=== PATIENT | female | born 1955 | race Caucasian/White ===

== ENCOUNTER 2021-05-06 09:31 | Inpatient (IN) ==
--- NOTE | 2021-05-06 09:40 | DR.SOBA ---
HPI Time Seen Time Seen by Provider: 05/06/21 09:35 Complaints Chief Complaint Doctors Comments: 65 y/o female, has a h/o COPD, having dyspnea over the past 3 days. Worsened this am. Denies cough, fever, chills, chest pain or recent illness. Has O2 at home, presented to triage without O2, pulse ox 38%. No cardiac hx, no h/o CHF. H/o smoking, quit 3 months ago. COVID-19 Coronavirus risk:travel/contact w/high risk person: No Has patient experienced Coronavirus symptoms: Yes Coronavirus symptoms experienced: Shortness of Breath Reviewed Nurses Notes Reviewed: Yes Source History Provided: Patient PMH PMH Past Medical History: COPD Past Surgical History: No Family History History of Family Medical Conditions: No Social History Does patient currently use any type of tobacco product: No Have you used tobacco products in the last 12 months: Yes Type of Tobacco Use: Cigarettes Alcohol Use: None Do you use any recreational Drugs:: No Travel Risk Coronavirus risk:travel/contact w/high risk person: No Has patient experienced Coronavirus symptoms: Yes Coronavirus symptoms experienced: Shortness of Breath ROS Review of Systems Constitutional: Malaise and Fatigue Eyes: No Symptoms Reported ENTM: No Symptoms Reported Respiratoy: Short of Breath Cardiovascular: No Symptoms Reported Gastrointestinal/Abdominal: No Symptoms Reported Genitourinary: No Symptoms Reported Neurological: No Symptoms Reported Musculoskeletal: No Symptoms Reported Integumentary: No Symptoms Reported Hematologic/Lymphatic: No Symptoms Reported Endocrine: No Symptoms Reported Psychiatric: No Symptoms Reported All Other Systems: Reviewed and Negative PE Vital Signs Vitals: Pulse Rate [Left Radial] 73 Pulse Rate 68 Respiratory Rate 20 Blood Pressure [Left Arm] 146/70 Blood Pressure 145/82 O2 Sat by Pulse Oximetry 94 General Limitations: No Limitations General Appearance: Alert and In Distress (but better on O2) Head Head Exam: Normal Inspection Eyes Eye exam: Normal Appearance and PERRL ENT ENT Exam: Normal Exam Neck Neck Exam: Normal Inspection Chest Chest Inspection: Normal Inspection Respiratory Respiratory Exam: Other (decreased breath sounds at bases, no wheezing.) Cardiovascular Cardiovascular Exam: Regular Rate, Normal Rhythm and Normal Heart Sounds Abdominal Exam Abdominal Exam: Normal Inspection, Normal Bowel Sounds and Soft; negative Tenderness Extremities Extremities Exam: Normal Inspection Back Back Exam: Normal Inspection and Full ROM Neurologic Neurological Exam: Alert, Oriented X3 and CN II-XII Intact; negative Motor Sensory Deficit Psychiatric Psychiatric Exam: Normal Affect Skin Skin Exam: Warm and Dry MDM Differential Diagnosis Differential Diagnosis: Bronchitis, CHF, COPD, Mycardial Infarction, Pneumonia and Pulmonary embolism COURSE Treatment Treatment: Pt with h/o COPD, having dyspnea over the past several days. Pulse ox etremely low at triage. Placed in NRB, w/u initiated. ABG with elevated pCO2/pO2. Changed to bipap. CXR without infiltrate. Given IV steroid, duoneb breathing treatment. 1246 - repeat ABG shows persistent elevated pCO2, with some improvement, 91 - 89. Chemistries overall acceptable except for elevated HCO3 or 42. Pt appears to have exacerbation of COPD. Recommend admission for further treatment. Discussed with covering hospitalist, Dr. Hines, accepts the admis price. ROR Labs Reviewed Laboratory Results Reviewed?: Yes Result Diagrams: 05/06/21 09:36 05/06/21 09:36 Laboratory: WBC 9.9 X10^3/uL (3.6-10.0) 05/06/21 09:36 RBC 4.24 X10^6/uL (3.5-5.4) 05/06/21 09:36 Hgb 13.6 g/dL (12.0-16.0) 05/06/21 09:36 Hct 40.9 % (36.0-47.0) 05/06/21 09:36 MCV 96.4 fL (80.0-100.0) 05/06/21 09:36 MCH 32.0 pg (27.0-34.0) 05/06/21 09:36 MCHC 33.2 g/dL (33.0-35.0) 05/06/21 09:36 RDW 14.8 % (11.6-16.5) 05/06/21 09:36 Plt Count 254 X10^3/uL (150.0-450.0) 05/06/21 09:36 MPV 8.6 fL (7.4-11.0) 05/06/21 09:36 Neut % (Auto) 75.8 % (42.0-75.0) H 05/06/21 09:36 Lymph % (Auto) 13.4 % (21.0-51.0) L 05/06/21 09:36 Jennings % (Auto) 9.0 % (0.0-13.0) 05/06/21 09:36 Eos % (Auto) 1.1 % (0.9-2.9) 05/06/21 09:36 Baso % (Auto) 0.7 % (0.2-1.0) 05/06/21 09:36 Neut # (Auto) 7.5 x10^3/uL (2.2-4.8) H 05/06/21 09:36 Lymph # (Auto) 1.3 X10^3/uL (1.3-2.9) 05/06/21 09:36 [place] # (Auto) 0.9 x10^3/uL (0.3-0.8) H 05/06/21 09:36 Eos # (Auto) 0.1 x10^3/uL (0.0-0.2) 05/06/21 09:36 Baso # (Auto) 0.1 X10^3/uL (0.0-0.1) 05/06/21 09:36 Absolute Nucleated RBC 0.1 /100WBC 05/06/21 09:36 Sample Site Rr 05/06/21 12:18 ABG pH 7.290 (7.35-7.45) L 05/06/21 12:18 ABG pCO2 89.0 mmHg (35.0-45.0) H* 05/06/21 12:18 ABG pO2 76.0 mmHg (80.0-100.0) L 05/06/21 12:18 ABG HCO3 42.8 mmol/L (22-26) H* 05/06/21 12:18 ABG O2 Saturation 93.0 % (90-100) 05/06/21 12:18 ABG Base Excess 12.6 mmol/L (-2.0-2.0) H 05/06/21 12:18 Balta Test Pos 05/06/21 12:18 A-a Gradient 98.0 mmHg 05/06/21 12:18 FiO2 40.0 05/06/21 12:18 Blood Gas Comments Pt jeanine well. jn, infusion rn 05/06/21 12:18 Sodium 146 mmol/L (136-145) H 05/06/21 09:36 Corrected Sodium 147 mmol/L (136-145) H 05/06/21 09:36 Potassium 4.1 mmol/L (3.5-5.1) 05/06/21 09:36 Chloride 104 mmol/L (98-107) 05/06/21 09:36 Carbon Dioxide 42.2 mmol/L (21-32) H* 05/06/21 09:36 BUN 20 mg/dL (7-18) H 05/06/21 09:36 Creatinine 0.75 mg/dL (0.55-1.02) 05/06/21 09:36 Est GFR (MDRD) Af Amer > 60 (>60) 05/06/21 09:36 Est GFR (MDRD) Non-Af > 60 (>60) 05/06/21 09:36 Glucose 122 mg/dL (65-99) H 05/06/21 09:36 Calcium 8.3 mg/dL (8.5-10.1) L 05/06/21 09:36 Corrected Calcium 8.9 mg/dL (8.5-10.1) 05/06/21 09:36 Total Bilirubin 0.30 mg/dL (0.2-1.0) 05/06/21 09:36 AST 40 Units/L (15-37) H 05/06/21 09:36 ALT 108 Units/L (12-78) H 05/06/21 09:36 Alkaline Phosphatase 151 Units/L (46-116) H 05/06/21 09:36 Creatine Kinase 81 Units/L (26-192) 05/06/21 09:36 CK-MB (CK-2) 2.8 ng/mL (0-4.0) 05/06/21 09:36 CK/CKMB % Calc 3.5 % (<4) 05/06/21 09:36 Troponin I < 0.02 ng/mL (0-1.5) 05/06/21 09:36 B-Natriuretic Peptide 169 pg/mL (0-79) H 05/06/21 09:36 Total Protein 7.1 g/dL (6.4-8.2) 05/06/21 09:36 Albumin 3.3 g/dL (3.4-5.0) L 05/06/21 09:36 Globulin 3.8 g/dL (2.5-4.5) 05/06/21 09:36 Albumin/Globulin Ratio 0.9 Ratio (1.1-2.1) L 05/06/21 09:36 SARS-CoV-2 (PCR) Negative (NEGATIVE) 05/06/21 09:51 Influenza Type A (PCR) Negative (NEGATIVE) 05/06/21 09:51 Influenza Type B (PCR) Negative (NEGATIVE) 05/06/21 09:51 RSV (PCR) Negative (NEGATIVE) 05/06/21 09:51 Other Results Comments: ABG on NRB - pH 7.3, ABG pCO2 91, pO2 398. Changed to bipap EKG Rate: 85 [place]: RAD Rhythm: NSR Block: None Hypertrophy: None ST: Nonsp Opioid Opioid Risk Tool Total: 0 Total Score Risk Category: Low Risk Copyright: Manny SORIA predicting aberrant behaviors Diagnosis Discharge Problem: COPD with acute exacerbation
[2021-05-06 09:42] LABS: ABG BASE EXCESS 14.4 mmol/L (-2.0-2.0)
[2021-05-06 09:44] LABS: ABG ALLEN TEST POS; ABG HCO3 44.8 mmol/L (22-26)
[2021-05-06 10:03] LABS: BASOPHILS # (AUTO) 0.1 X10^3/uL (0.0-0.1); BASOPHILS % (AUTO) 0.7 % (0.2-1.0); EOSINOPHILS # (AUTO) 0.1 x10^3/uL (0.0-0.2); EOSINOPHILS % (AUTO) 1.1 % (0.9-2.9); HEMATOCRIT 40.9 % (36.0-47.0); HEMOGLOBIN 13.6 g/dL (12.0-16.0); LYMPHOCYTES # (AUTO) 1.3 X10^3/uL (1.3-2.9); LYMPHOCYTES % (AUTO) 13.4 % (21.0-51.0); MEAN CORPUSCULAR HGB CONC 33.2 g/dL (33.0-35.0); MEAN CORPUSCULAR VOLUME 96.4 fL (80.0-100.0); MEAN PLATELET VOLUME 8.6 fL (7.4-11.0); MONOCYTES # (AUTO) 0.9 x10^3/uL (0.3-0.8); NEUTROPHILS # (AUTO) 7.5 x10^3/uL (2.2-4.8); NEUTROPHILS % (AUTO) 75.8 % (42.0-75.0); PLATELET COUNT 254 X10^3/uL (150.0-450.0); RED BLOOD COUNT 4.24 X10^6/uL (3.5-5.4); RED CELL DISTRIBUTION WIDTH 14.8 % (11.6-16.5); WHITE BLOOD COUNT 9.9 X10^3/uL (3.6-10.0)
--- NOTE | 2021-05-06 10:03 | RAD ---
HISTORYPT. C/O SHORTNESS OF BREATH, ONSET OF THURSDAY. PT. WEARS HOME O2 @ 2LPM VIA N/C. PT. HAD NO O2 ON UPON ARRIVAL TO THE ER. PT. IN RESPIRATORY DISTRESSSTUDYCHEST, 1 [id number]/08/2021.TECHNIQUEAP view of the chestFINDINGSCardiac and mediastinal contours are within normal limits. The lungs are stably hyperexpanded. No consolidation or segmental lung collapse. No definite pleural effusion or pneumothorax. Soft tissue attenuation limits evaluation.IMPRESSIONHyperexpanded lungs suggest COPD.Electronically signed by: Justino Phillips (May 06, 2021 09:59:41)
[2021-05-06] MEDS ORDERED: DUONEB 0.5 MG/3 MG (3 mL) NEB ONE ×2 (10:05→10:59)
[2021-05-06] MEDS ORDERED: SOLU-Medrol 125 MG VIAL IVP ONE (10:05)
[2021-05-06 10:22] LABS: ALANINE AMINOTRANSFERASE 108 Units/L (12-78); ALBUMIN 3.3 g/dL (3.4-5.0); ALKALINE PHOSPHATASE 151 Units/L (46-116); ASPARTATE AMINO TRANSFERASE 40 Units/L (15-37); BLOOD UREA NITROGEN 20 mg/dL (7-18); CALCIUM 8.3 mg/dL (8.5-10.1); CHLORIDE 104 mmol/L (98-107); CKMB % 3.5 % (<4); COR CA(FOR HYPOALB) 8.9 mg/dL (8.5-10.1); COR NA(FOR HYPERGLY) 147 mmol/L (136-145); CREATINE KINASE 81 Units/L (26-192); CREATINE KINASE MB 2.8 ng/mL (0-4.0); CREATININE 0.75 mg/dL (0.55-1.02); SODIUM 146 mmol/L (136-145); TOTAL PROTEIN 7.1 g/dL (6.4-8.2); TROPONIN I < 0.02 ng/mL (0-1.5); eGFR NON BLACK RACES > 60 (>60)
[2021-05-06 10:26] LABS: CARBON DIOXIDE 42.2 mmol/L (21-32)
[2021-05-06] MEDS ORDERED: SOLU-Medrol 125 MG VIAL ONE (10:27)
[2021-05-06 12:23] LABS: ABG BASE EXCESS 12.6 mmol/L (-2.0-2.0)
[2021-05-06 12:24] LABS: ABG ALLEN TEST POS; ABG HCO3 42.8 mmol/L (22-26)
[2021-05-06] MEDS ORDERED: LEVAQUIN PREMIX IV 750 MG 750 MG/150 ML BAG IV ONE ×2 (13:08→13:46)
[2021-05-06 16:31] VITALS: BMI 36.1
[2021-05-06] MEDS: SOLU-Medrol 40 MG VIAL IVP SCH ×2 (16:35→21:05)
[2021-05-06] MEDS: NS 1,000 ML IV 1,000 ML IV SCH (16:35)
[2021-05-06] MEDS: DUONEB 0.5 MG/3 MG (3 mL) NEB SCH ×2 (17:40→20:40)
[2021-05-06] MEDS: PULMICORT NEB TX 0.5 MG NEB SCH (20:40)
[2021-05-06] MEDS: SNACK - Diabetic Appropriate PO SCH (21:04)
[2021-05-06] MEDS: HumuLIN R SUBCUT PRN (21:05)
[2021-05-07] MEDS: NS 1,000 ML IV 1,000 ML IV SCH ×2 (05:30→15:12)
[2021-05-07] MEDS: SOLU-Medrol 40 MG VIAL IVP SCH ×3 (05:31→21:04)
--- NOTE | 2021-05-07 05:55 | RAD ---
PROCEDURE: Chest X-ray 1 View .HISTORY: DYSPNEA .TECHNIQUE: AP view .COMPARISON: 05/06/2021.TECHNICAL QUALITY: Satisfactory .FINDINGS:Normal size heart .Mediastinum and hilar regions show no masses or lymphadenopathy .Normal central vascularity .No pulmonary consolidation, masses, pleural fluid, or pneumothorax. Hyper expansion of the lungs with hyperlucency consistent with emphysema. Some increased interstitial markings consistent with fibrosis that is unchanged.No acute bony abnormality .IMPRESSION:1. COPD and fibrosis.2. No other acute change identified.Electronically signed by: Peña Luu (May 07, 2021 05:53:18)
[2021-05-07 06:18] LABS: BASOPHILS % (AUTO) 0.3 % (0.2-1.0); HEMATOCRIT 40.1 % (36.0-47.0); HEMOGLOBIN 12.9 g/dL (12.0-16.0); LYMPHOCYTES # (AUTO) 0.5 X10^3/uL (1.3-2.9); LYMPHOCYTES % (AUTO) 3.3 % (21.0-51.0); MEAN CORPUSCULAR HEMOGLOBIN 31.4 pg (27.0-34.0); MEAN CORPUSCULAR HGB CONC 32.2 g/dL (33.0-35.0); MEAN CORPUSCULAR VOLUME 97.7 fL (80.0-100.0); MEAN PLATELET VOLUME 8.7 fL (7.4-11.0); MONOCYTES # (AUTO) 0.6 x10^3/uL (0.3-0.8); MONOCYTES % (AUTO) 4.2 % (0.0-13.0); NEUTROPHILS # (AUTO) 12.8 x10^3/uL (2.2-4.8); NEUTROPHILS % (AUTO) 92.2 % (42.0-75.0); PLATELET COUNT 235 X10^3/uL (150.0-450.0); RED CELL DISTRIBUTION WIDTH 14.7 % (11.6-16.5); WHITE BLOOD COUNT 13.9 X10^3/uL (3.6-10.0)
[2021-05-07 06:47] LABS: ALANINE AMINOTRANSFERASE 101 Units/L (12-78); ALBUMIN 3.1 g/dL (3.4-5.0); ALKALINE PHOSPHATASE 142 Units/L (46-116); ASPARTATE AMINO TRANSFERASE 31 Units/L (15-37); BLOOD UREA NITROGEN 17 mg/dL (7-18); CALCIUM 8.4 mg/dL (8.5-10.1); CARBON DIOXIDE 39.9 mmol/L (21-32); CHLORIDE 104 mmol/L (98-107); COR CA(FOR HYPOALB) 9.1 mg/dL (8.5-10.1); COR NA(FOR HYPERGLY) 146 mmol/L (136-145); CREATININE 0.71 mg/dL (0.55-1.02); SODIUM 144 mmol/L (136-145); TOTAL PROTEIN 6.8 g/dL (6.4-8.2); eGFR NON BLACK RACES > 60 (>60)
[2021-05-07 07:05] LABS: BAND NEUTROPHILS % 3 % (0-10); PLATELET MORPHOLOGY COMMENT NORMAL (NORMAL)
[2021-05-07] MEDS: DUONEB 0.5 MG/3 MG (3 mL) NEB SCH ×4 (08:50→21:00)
[2021-05-07] MEDS: PULMICORT NEB TX 0.5 MG NEB SCH ×2 (08:50→21:00)
[2021-05-07] MEDS: LEVAQUIN PREMIX IV 750 MG 750 MG/150 ML BAG IV SCH (09:19)
[2021-05-07] MEDS: LOVENOX INJ 40 MG SYR SC SCH (18:00)
[2021-05-07] MEDS: SNACK - Diabetic Appropriate PO SCH (20:12)
[2021-05-07] MEDS: HumuLIN R SUBCUT PRN ×2 (20:13→21:05)
[2021-05-08 05:31] LABS: BASOPHILS % (AUTO) 0.2 % (0.2-1.0); HEMATOCRIT 39.4 % (36.0-47.0); HEMOGLOBIN 12.8 g/dL (12.0-16.0); LYMPHOCYTES # (AUTO) 0.4 X10^3/uL (1.3-2.9); LYMPHOCYTES % (AUTO) 2.2 % (21.0-51.0); MEAN CORPUSCULAR HEMOGLOBIN 31.4 pg (27.0-34.0); MEAN CORPUSCULAR HGB CONC 32.5 g/dL (33.0-35.0); MEAN CORPUSCULAR VOLUME 96.6 fL (80.0-100.0); MEAN PLATELET VOLUME 8.5 fL (7.4-11.0); MONOCYTES # (AUTO) 0.5 x10^3/uL (0.3-0.8); MONOCYTES % (AUTO) 2.9 % (0.0-13.0); NEUTROPHILS # (AUTO) 15.4 x10^3/uL (2.2-4.8); NEUTROPHILS % (AUTO) 94.7 % (42.0-75.0); PLATELET COUNT 248 X10^3/uL (150.0-450.0); RED BLOOD COUNT 4.08 X10^6/uL (3.5-5.4); RED CELL DISTRIBUTION WIDTH 14.6 % (11.6-16.5); WHITE BLOOD COUNT 16.3 X10^3/uL (3.6-10.0)
[2021-05-08] MEDS: SOLU-Medrol 40 MG VIAL IVP SCH ×3 (05:43→21:00)
[2021-05-08 05:52] LABS: ALANINE AMINOTRANSFERASE 95 Units/L (12-78); ALKALINE PHOSPHATASE 127 Units/L (46-116); ASPARTATE AMINO TRANSFERASE 24 Units/L (15-37); BLOOD UREA NITROGEN 17 mg/dL (7-18); CALCIUM 8.2 mg/dL (8.5-10.1); CARBON DIOXIDE 37.7 mmol/L (21-32); CHLORIDE 104 mmol/L (98-107); COR NA(FOR HYPERGLY) 144 mmol/L (136-145); CREATININE 0.71 mg/dL (0.55-1.02); SODIUM 143 mmol/L (136-145); TOTAL PROTEIN 6.5 g/dL (6.4-8.2); eGFR NON BLACK RACES > 60 (>60)
[2021-05-08 05:55] LABS: ABG BASE EXCESS 13.4 mmol/L (-2.0-2.0)
[2021-05-08 05:58] LABS: ABG HCO3 43.3 mmol/L (22-26)
[2021-05-08 05:59] LABS: ABG ALLEN TEST P
[2021-05-08 06:16] LABS: PLATELET MORPHOLOGY COMMENT NORMAL (NORMAL)
--- NOTE | 2021-05-08 06:27 | RAD ---
HISTORYDyspnea, COPDSTUDYChest AP [id number]/02/2021FINDINGSThe heart is enlarged. No congestive heart failure is noted. The aldo are normal. The lungs remain hyperinflated with the exception of some subsegmental atelectasis in the left costophrenic angle. Mild chronic interstitial lung changes are present. No acute alveolar infiltrates or pleural effusions are identified. Bony thorax is unremarkable.IMPRESSIONHyperinflation and mild interstitial lung changes most consistent with COPD in the appropriate clinical setting and unchangedCardiomegaly without congestive heart failureElectronically signed by: KAROLYN FREEMAN (May 08, 2021 06:25:39)
[2021-05-08] MEDS: LOVENOX INJ 40 MG SYR SC SCH (08:30)
[2021-05-08] MEDS: LEVAQUIN PREMIX IV 750 MG 750 MG/150 ML BAG IV SCH (08:30)
[2021-05-08] MEDS: DUONEB 0.5 MG/3 MG (3 mL) NEB SCH ×4 (09:38→21:59)
[2021-05-08] MEDS: PULMICORT NEB TX 0.5 MG NEB SCH ×2 (09:38→21:59)
[2021-05-08] MEDS: NS 1,000 ML IV 1,000 ML IV SCH ×2 (15:26→23:11)
[2021-05-08] MEDS: SNACK - Diabetic Appropriate PO SCH (20:30)
[2021-05-08] MEDS ORDERED: TYLENOL 325 MG TAB PO ONE (21:00)
[2021-05-08] MEDS ORDERED: BENADRYL INJ 50 MG VIAL IV ONE (21:00)
[2021-05-08] MEDS: HumuLIN R SUBCUT PRN (21:27)
[2021-05-09 05:17] LABS: ABG ALLEN TEST POS; ABG HCO3 45.2 mmol/L (22-26)
[2021-05-09] MEDS: SOLU-Medrol 40 MG VIAL IVP SCH (05:24)
[2021-05-09 06:08] LABS: BASOPHILS % (AUTO) 0.1 % (0.2-1.0); HEMATOCRIT 41.9 % (36.0-47.0); HEMOGLOBIN 13.6 g/dL (12.0-16.0); LYMPHOCYTES # (AUTO) 0.4 X10^3/uL (1.3-2.9); LYMPHOCYTES % (AUTO) 2.5 % (21.0-51.0); MEAN CORPUSCULAR HEMOGLOBIN 31.6 pg (27.0-34.0); MEAN CORPUSCULAR HGB CONC 32.5 g/dL (33.0-35.0); MEAN CORPUSCULAR VOLUME 97.1 fL (80.0-100.0); MEAN PLATELET VOLUME 8.3 fL (7.4-11.0); MONOCYTES # (AUTO) 0.6 x10^3/uL (0.3-0.8); MONOCYTES % (AUTO) 3.9 % (0.0-13.0); NEUTROPHILS # (AUTO) 14.3 x10^3/uL (2.2-4.8); NEUTROPHILS % (AUTO) 93.5 % (42.0-75.0); PLATELET COUNT 258 X10^3/uL (150.0-450.0); RED BLOOD COUNT 4.31 X10^6/uL (3.5-5.4); RED CELL DISTRIBUTION WIDTH 14.6 % (11.6-16.5); WHITE BLOOD COUNT 15.3 X10^3/uL (3.6-10.0)
[2021-05-09 06:12] LABS: ALANINE AMINOTRANSFERASE 93 Units/L (12-78); ALBUMIN 3.2 g/dL (3.4-5.0); ALKALINE PHOSPHATASE 127 Units/L (46-116); ASPARTATE AMINO TRANSFERASE 21 Units/L (15-37); BLOOD UREA NITROGEN 21 mg/dL (7-18); CALCIUM 8.6 mg/dL (8.5-10.1); CHLORIDE 103 mmol/L (98-107); COR CA(FOR HYPOALB) 9.2 mg/dL (8.5-10.1); COR NA(FOR HYPERGLY) 144 mmol/L (136-145); CREATININE 0.71 mg/dL (0.55-1.02); SODIUM 143 mmol/L (136-145); TOTAL PROTEIN 6.7 g/dL (6.4-8.2); eGFR NON BLACK RACES > 60 (>60)
[2021-05-09 06:25] LABS: CARBON DIOXIDE 41.5 mmol/L (21-32)
--- NOTE | 2021-05-09 06:35 | RAD ---
HISTORYShortness of breathSTUDYChest AP [id number]/03/2021FINDINGSThe heart remains enlarged. No congestive heart failure is noted. The lungs remain mildly hyperinflated with the exception of some subsegmental atelectasis in the left costophrenic angle. Mild chronic interstitial lung changes are present and stable. No acute alveolar infiltrates, areas of consolidation or pleural effusions are identified. Bony thorax is unremarkable.IMPRESSIONNo significant change from the prior examinationElectronically signed by: KAROLYN FREEMAN (May 09, 2021 06:33:34)
[2021-05-09 07:03] LABS: BAND NEUTROPHILS % 3 % (0-10); PLATELET MORPHOLOGY COMMENT NORMAL (NORMAL); STOMATOCYTES PRESENT
[2021-05-09 08:05] VITALS: BP 169/70
[2021-05-09] MEDS: PULMICORT NEB TX 0.5 MG NEB SCH (08:30)
[2021-05-09] MEDS: DUONEB 0.5 MG/3 MG (3 mL) NEB SCH (08:30)
[2021-05-09] MEDS: LOVENOX INJ 40 MG SYR SC SCH (08:42)
[2021-05-09] MEDS: LEVAQUIN PREMIX IV 750 MG 750 MG/150 ML BAG IV SCH (08:42)
== END 2021-05-09 12:40 | disposition home or self-care (01) | DRG 192 ==
LOC: ER 09:31 → MED/SURG 13:03
PROVIDERS: ADMIT Internal Medicine; ATTEND Internal Medicine
DX: Z20.822 Contact with and (suspected) exposure to COVID-19; J44.1 Chronic obstructive pulmonary disease with (acute) exacerbation